=== PATIENT | female | born 1995 | race Caucasian/White ===

== ENCOUNTER 2017-04-14 12:23 | Emergency (ER) | payer MEDICAID ==
[2017-04-14 15:20] VITALS: BP 118/76
== END 2017-04-14 15:20 | disposition home or self-care (01) ==
LOC: ED 12:23
DX: B34.9 Viral infection, unspecified (principal)
CPT/HCPCS: J1885; J7613; J7644; Q0092

== ENCOUNTER 2018-07-18 15:25 | Emergency (ER) | payer SELFPAY ==
[~2018-07-18] VITALS: Ht 154.9 cm; Wt 73.5 kg
[2018-07-18 16:34] VITALS: BP 139/86
== END 2018-07-18 16:34 | disposition home or self-care (01) ==
LOC: ED 15:25
DX: J40 Bronchitis, not specified as acute or chronic (principal)
CPT/HCPCS: J1100; Q0092